=== PATIENT | male | born 1960 | race Hispanic/Latino ===

== ENCOUNTER 2020-01-21 16:17 | Emergency (ER) | payer SELFPAY ==
[~2020-01-21] VITALS: Ht 172.7 cm; Wt 81.6 kg
[2020-01-21] MEDS ORDERED: MULTIVITAMINS- 12 INJECTION 10 ML, FOLIC ACID MDV 5 MG, THIAMINE HCL INJ 100 MG in SODI... IV ONE (16:45)
[2020-01-21 17:12] LABS: BASOPHILS # (AUTO) 0.1 (0.0-0.1); BASOPHILS % 1.2 % (0.0-1.0); EOSINOPHILS # (AUTO) 0.1 (0.0-0.4); EOSINOPHILS % 1.2 % (0.0-6.0); HEMATOCRIT 39.4 % (38.2-49.6); HEMOGLOBIN 13.7 g/dL (14.0-18.0); LYMPHOCYTES # (AUTO) 2.6 (1.0-3.2); LYMPHOCYTES % 50.3 % (18.0-39.1); MEAN CORPUSCULAR HEMOGLOBIN 29.8 pg (28-32); MEAN CORPUSCULAR HGB CONC 34.8 g/dL (31-35); MEAN CORPUSCULAR VOLUME 85.8 fL (81-99); MONOCYTES # (AUTO) 0.4 (0.2-0.8); NEUTROPHILS # (AUTO) 2.1 (2.1-6.9); NEUTROPHILS % 40.1 % (38.7-80.0); PLATELET COUNT 132 x10e3/uL (140-360); RED BLOOD COUNT 4.59 x10e6/uL (4.3-5.7); RED CELL DISTRIBUTION WIDTH 12.3 % (11.7-14.4)
[2020-01-21 17:23] LABS: INR 0.92; PARTIAL THROMBOPLASTIN TIME 28.1 seconds (23.8-35.5); PROTHROMBIN TIME 12.9 seconds (11.9-14.5)
[2020-01-21 17:31] LABS: ALANINE AMINOTRANSFERASE 72 IU/L (0-55); ALBUMIN 4.2 g/dL (3.5-5.0); ALBUMIN/GLOBULIN RATIO 1.2 (0.8-2.0); ALKALINE PHOSPHATASE 95 IU/L (40-150); ANION GAP 17.5 mmol/L (8-16); BLOOD UREA NITROGEN 5 mg/dL (7-26); BUN/CREATININE RATIO 6 (6-25); CALCIUM 8.4 mg/dL (8.4-10.2); CARBON DIOXIDE 23 mmol/L (22-29); CHLORIDE 100 mmol/L (98-107); CREATINE KINASE 125 IU/L (30-200); CREATININE, SERUM 0.83 mg/dL (0.72-1.25); EST GLOMERULAR FILTRATION RATE > 60 ML/MIN (60-); GLUCOSE 106 mg/dL (74-118); POTASSIUM 3.5 mmol/L (3.5-5.1); SODIUM 137 mmol/L (136-145)
--- NOTE | 2020-01-21 17:36 | Diagnostic Imaging Report ---
CT BRAIN WO, CT CERVICAL SPINE WO HISTORY: Fall COMPARISON: None. TECHNIQUE: Axial noncontrast CT images were obtained through the head and cervical spine. Coronal and sagittal reconstructions obtained from the axial data. One or more of the following dose reduction techniques were used: Automated exposure control, adjustment of the mA and/or kV according to patient size, and/or utilization of iterative reconstruction technique. DISCUSSION: HEAD CT: Scalp/Skull: Unremarkable. Brain sulci: Mildly prominent. Ventricles: Compensatory dilatation. Extra-axial spaces: No masses or fluid collections. Carotid siphon calcifications. Parenchyma: Mild periventricular white matter hypodensities are likely chronic microvascular ischemic changes. Otherwise, no masses, hemorrhage, or large vascular territory acute infarct. Dural sinuses: No abnormal densities. Sellar/Suprasellar region: Intact. Skull base: Intact. Incidental findings: Mild chronic-appearing deformity of the right lamina papyracea may be from remote trauma. CERVICAL SPINE CT: Cervical lordosis is straightened. There is no scoliosis or subluxation. No fractures, compression deformity, or destructive osseous lesions are seen. The craniocervical junction is intact. No gross spinal canal masses are seen. The paravertebral and paraspinal soft tissues are unremarkable. Mild multilevel spondylotic changes are present. Prominent multilevel marginal osteophytes with relatively preserved disc spaces suggest diffuse idiopathic skeletal hyperostosis. Incidental findings: Mild bilateral carotid bulb calcified plaque is present. IMPRESSION: Head CT: 1. No acute intracranial abnormalities. 2. Mild supratentorial chronic microvascular ischemic change. Mild generalized cerebral volume loss. Cervical Spine CT: 1. No acute osseous abnormalities in the cervical spine. 2. Mild multilevel spondylosis with diffuse idiopathic skeletal hyperostosis. Signed by: Dr. Avery Pedro M.D. on 01/21/2020 5:33 PM
--- NOTE | 2020-01-21 17:53 | NUR ---
DONITA DID NOT CALL NURSE, PULLED OFF C-COLLAR. GOT UP AND WENT TO BATHROOM. REINFORCED TO PATIENT TO CALL FOR ASSISTANCE. ACCIDENTALLY PULLED OUT HIS IV
--- NOTE | 2020-01-21 17:58 | Diagnostic Imaging Report ---
Examination: Single AP view of the chest. COMPARISON: None. INDICATION: Alcohol intoxication, status post fall IMPRESSION: 1. Lines and Tubes: None 2. Lungs are grossly clear. No consolidation or effusion. 3. Cardiomediastinal silhouette is normal. Pulmonary vasculature is normal. 4. No acute bony abnormalities. Signed by: Dr. Omid Landaverde M.D. on 01/21/2020 5:55 PM
--- NOTE | 2020-01-21 18:30 | NUR ---
PATIENT CONTINUALLY GETTING OUT OF BED AND BEING REMINDED, WANTING TO WALK DOWN [place] AND WALK OUT OF ER. GAIT STEADY. CONTINUED TO REINFORCE TO USE CALL LIGHT WHEN NEEDED ANYTHING. PATIENTS SIDE RAILS UP, HE CALLS TO EDGE OF BED. PATIENT DOOR OPEN SO WE CAN MONITOR HIM. I HAVE SPOKEN WITH HIS DAUGHTER ASIM, SHE IS HAVING HER BROTHER IN LAW TO COME GET HIM.
--- NOTE | 2020-01-21 19:36 | NUR ---
CALLED DAUGHTER ZEKE DAILEY ([phone]) TO FIND OUT ETA
--- NOTE | 2020-01-21 19:37 | Emergency Department Note ---
History of Present Illnes History of Present Illness Chief Complaint: Alcohol Abuse/Intoxication History of Present Illness This is a 59 year old male Pt arrived to the ER via EMS s/p fall outside on concrete d/t alcohol intoxication. Pt reports walking down stairs and tripped hitting his head and ? LOC. No laceration noted to head hematoma noted to left side occipital head. Pt reports drinking heavily today beer and whiskey states unknown exactly how much. Pt smells very heavily of alcohol. Historian: Patient, Bread Room Hand/EMS Arrival Mode: [place] Additional Treatment ROD PLACER: C-collar 20 G IV L AC, 250cc NS Executive Team Leader Required: No Onset (how long ago): hour(s) Radiation: Reports non-radiation Severity: moderate Onset quality: sudden Progression: improving Chronicity: new Context: Denies recent illness Relieving factors: none Exacerbating factors: none Associated symptoms: Reports denies other symptoms Past Medical/Family History Physician Review I have reviewed the patient's past medical and family history. Any updates have been documented here. 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 Social History Smoking Cessation: Never Smoker Counseling Performed: No Alcohol Use: Daily Any Illegal Drug Use: No TB Exposure/Symptoms: No Physically hurt or threatened: No Other Any Pre-Existing Lines (PICC,: No Is patient up to date on immun: Yes Last Flu: NONE Last Pneumovax: NONE Review of Systems Review of Systems Constitutional: Reports as per HPI EENTM: Reports no symptoms Cardiovascular: Reports no symptoms Respiratory: Reports no symptoms Gastrointestinal: Reports no symptoms Genitourinary: Reports no symptoms Musculoskeletal: Reports no symptoms Integumentary: Reports no symptoms Neurological: Reports as per HPI Psychological: Reports no symptoms Endocrine: Reports no symptoms Hematological/Lymphatic: Reports no symptoms Physical Exam Related Data Allergies: Coded Allergies: No Known Allergies (Unverified , 01/21/20) Triage Vital Signs Vital Signs Date Time Temp Pulse Resp B/P (MAP) Pulse Ox O2 Delivery O2 Flow Rate FiO2 01/21/20 16:17 97.0 89 14 145/99 98 Vital signs reviewed: Yes Physical Exam CONSTITUTIONAL Constitutional: Present well-developed, Present other (SMELLS OF ETHANOL) HENT HENT: Present oropharynx clear/moist, Present oropharynx normal, Present other (HEMATOMA TO LEFT OCCIPITAL AREA) HENT L/R: Present left ext ear normal, Present right ext ear normal EYES Eyes: Reports PERRL, Reports conjunctivae normal NECK Neck: Present ROM normal PULMONARY Pulmonary: Present effort normal, Present breath sounds normal CARDIOVASCULAR Cardiovascular: Present regular rhythm, Present heart sounds normal, Present capillary refill normal, Present normal rate GASTROINTESTINAL Abdominal: Present soft, Present nontender, Present bowel sounds normal GENITOURINARY Genitourinary: Present exam deferred SKIN Skin: Present warm, Present dry MUSCULOSKELETAL Musculoskeletal: Present ROM normal NEUROLOGICAL Neurological: Present alert, Present oriented x 3, Present DTRs normal, Present no gross motor or sensory deficits, Present other (MILD SLURRED SPEECH) PSYCHOLOGICAL Psychological: Present mood/affect normal, Present judgement normal Results Laboratory Result Diagram: 01/21/20 1628 01/21/20 1628 Laboratory Laboratory Tests Test 01/21/20 16:28 White Blood Count 5.13 x10e3/uL (4.8-10.8) Red Blood Count 4.59 x10e6/uL (4.3-5.7) Hemoglobin 13.7 g/dL (14.0-18.0) Hematocrit 39.4 % (38.2-49.6) Mean Corpuscular Volume 85.8 fL (81-99) Mean Corpuscular Hemoglobin 29.8 pg (28-32) Mean Corpuscular Hemoglobin Concent 34.8 g/dL (31-35) Red Cell Distribution Width 12.3 % (11.7-14.4) Platelet Count 132 x10e3/uL (140-360) Neutrophils (%) (Auto) 40.1 % (38.7-80.0) Lymphocytes (%) (Auto) 50.3 % (18.0-39.1) Monocytes (%) (Auto) 7.0 % (4.4-11.3) Eosinophils (%) (Auto) 1.2 % (0.0-6.0) Basophils (%) (Auto) 1.2 % (0.0-1.0) Neutrophils # (Auto) 2.1 (2.1-6.9) Lymphocytes # (Auto) 2.6 (1.0-3.2) Monocytes # (Auto) 0.4 (0.2-0.8) Eosinophils # (Auto) 0.1 (0.0-0.4) Basophils # (Auto) 0.1 (0.0-0.1) Absolute Immature Granulocyte (auto 0.01 x10e3/uL (0-0.1) Prothrombin Time 12.9 seconds (11.9-14.5) Prothromb Time International Ratio 0.92 Activated Partial Thromboplast Time 28.1 seconds (23.8-35.5) Sodium Level 137 mmol/L (136-145) Potassium Level 3.5 mmol/L (3.5-5.1) Chloride Level 100 mmol/L (98-107) Carbon Dioxide Level 23 mmol/L (22-29) Anion Gap 17.5 mmol/L (8-16) Blood Urea Nitrogen 5 mg/dL (7-26) Creatinine 0.83 mg/dL (0.72-1.25) Estimat Glomerular Filtration Rate > 60 ML/MIN (60-) BUN/Creatinine Ratio 6 (6-25) Glucose Level 106 mg/dL (74-118) Calcium Level 8.4 mg/dL (8.4-10.2) Total Bilirubin 0.6 mg/dL (0.2-1.2) Aspartate Amino Transf (AST/SGOT) 130 IU/L (5-34) Alanine Aminotransferase (ALT/SGPT) 72 IU/L (0-55) Alkaline Phosphatase 95 IU/L (40-150) Creatine Kinase 125 IU/L (30-200) Creatine Kinase MB 1.10 ng/mL (0-5.0) Troponin I 0.004 ng/mL (0-0.300) Total Protein 7.7 g/dL (6.5-8.1) Albumin 4.2 g/dL (3.5-5.0) Globulin 3.5 g/dL (2.3-3.5) Albumin/Globulin Ratio 1.2 (0.8-2.0) Ethyl Alcohol Level 447.4 mg/dL (0.0-10.0) Lab results reviewed: Yes Imaging Imaging results reviewed: Yes Impressions Procedure: [id number] DX/CHEST SINGLE (PORTABLE) Exam Date: 01/21/20 Exam Time: 1700 REPORT STATUS: Signed Examination: Single AP view of the chest. COMPARISON: None. INDICATION: Alcohol intoxication, status post fall IMPRESSION: 1. Lines and Tubes: None 2. Lungs are grossly clear. No consolidation or effusion. 3. Cardiomediastinal silhouette is normal. Pulmonary vasculature is normal. 4. No acute bony abnormalities. Signed by: Dr. Omid Landaverde M.D. on 01/21/2020 5:55 PM Procedure: [id number] CT/CT BRAIN WO Exam Date: 01/21/20 Exam Time: 1700 REPORT STATUS: Signed CT BRAIN WO, CT CERVICAL SPINE WO HISTORY: Fall COMPARISON: None. TECHNIQUE: Axial noncontrast CT images were obtained through the head and cervical spine. Coronal and sagittal reconstructions obtained from the axial data. One or more of the following dose reduction techniques were used: Automated exposure control, adjustment of the mA and/or kV according to patient size, and/or utilization of iterative reconstruction technique. DISCUSSION: HEAD CT: Scalp/Skull: Unremarkable. Brain sulci: Mildly prominent. Ventricles: Compensatory dilatation. Extra-axial spaces: No masses or fluid collections. Carotid siphon calcifications. Parenchyma: Mild periventricular white matter hypodensities are likely chronic microvascular ischemic changes. Otherwise, no masses, hemorrhage, or large vascular territory acute infarct. Dural sinuses: No abnormal densities. Sellar/Suprasellar region: Intact. Skull base: Intact. Incidental findings: Mild chronic-appearing deformity of the right lamina papyracea may be from remote trauma. CERVICAL SPINE CT: Cervical lordosis is straightened. There is no scoliosis or subluxation. No fractures, compression deformity, or destructive osseous lesions are seen. The craniocervical junction is intact. No gross spinal canal masses are seen. The paravertebral and paraspinal soft tissues are unremarkable. Mild multilevel spondylotic changes are present. Prominent multilevel marginal osteophytes with relatively preserved disc spaces suggest diffuse idiopathic skeletal hyperostosis. Incidental findings: Mild bilateral carotid bulb calcified plaque is present. IMPRESSION: Head CT: 1. No acute intracranial abnormalities. 2. Mild supratentorial chronic microvascular ischemic change. Mild generalized cerebral volume loss. Cervical Spine CT: 1. No acute osseous abnormalities in the cervical spine. 2. Mild multilevel spondylosis with diffuse idiopathic skeletal hyperostosis. Signed by: Dr. Avery Pedro M.D. on 01/21/2020 5:33 PM Diagnostics Tests Diagnostic test(s) reviewed: Yes Procedures 12 Lead ECG Interpretation ECG Interpretation : ECG: ECG 1 Executive Team Leader: Interpreted by ED physician Date: Jan 21, 2020 Time: 17:00 Rhythm: sinus rhythm Rate: normal (85) QRS axis: normal ST segments normal: Yes T waves normal: Yes Other findings: LVH Clinical Impression: abnormal ECG Assessment & Plan Medical Decision Making MDM ETOH, FALL WITH HEMATOMA - CHECK CBC, CHEM'S, ETHANOL, CT HEAD/C-SPINE - R/O CEREBRAL BLEED, CERV FX, ETOH INTOX Reassessment Reassessment FAMILY CONTACTED US AND THEY WILL COME GLOBAL REGULATORY LEAD PATIENT AND STAY WITH HIM TONIGHT - DC IN THEIR CARE Assessment & Plan Final Impression: (1) Excessive consumption of ethanol (2) Fall (3) Hematoma of scalp Depart Disposition: HOME, SELF-CARE Last Vital Signs Date Time Temp Pulse Resp B/P (MAP) Pulse Ox O2 Delivery O2 Flow Rate FiO2 01/21/20 19:06 97.9 90 19 153/94 98 Medications in the ED Multivitamins 10 ml/Folic Acid 5 mg/Thiamine HCl 100 mg/Sodium Chloride 1,012 ml @ 250 mls/hr Q4H3M ONCE IV Last administered on 01/21/20at 17:39; Admin Dose 250 MLS/HR; Start 01/21/20 at 16:45; Stop 01/21/20 at 20:47 PORSCHE HILLMAN MD Jan 21, 2020 19:37
--- NOTE | 2020-01-21 19:49 | NUR ---
SITTING WITH PATIENT AT BEDSIDE, HE HAS ATTEMPTED TO LEAVE THE FACILITY MULTIPLE TIMES. PATIENT NOW SITTING UP DRINKING FLUIDS
[2020-01-21 19:59] VITALS: BP 141/94
== END 2020-01-21 20:40 | disposition home or self-care (01) ==
LOC: ER 16:17
DX: S00.83XA Contusion of other part of head, initial encounter (principal); W10.8XXA Fall (on) (from) other stairs and steps, initial encounter; Y93.01 Activity, walking, marching and hiking; F10.129 Alcohol abuse with intoxication, unspecified; I10 Essential (primary) hypertension
CPT/HCPCS: 36415; 70450; 71045; 72125; 80053; 80320; 82550; 82553; 84484; 85025; 85610; 85730; 99284; J3411; J7030; 93005